=== PATIENT | female | born 2000 | race Caucasian/White ===

== ENCOUNTER 2018-12-22 21:17 | Emergency (ER) | payer OTHER ==
[~2018-12-22] VITALS: Ht 165.1 cm; Wt 56.8 kg
[2018-12-22 21:26] VITALS: TEMP 98.7
[2018-12-22] MEDS ORDERED: BOTOX 100100 U/VIAL IM (22:07)
[2018-12-22 22:10] LABS: COLLECTION METHOD CLEAN CATCH
[2018-12-22 22:14] LABS: HEMOGLOBIN 11.6 g/dl (12.0-15.0); MEAN CELL VOLUME 87 fl (80.0-95.0); MEAN CORPUSCULAR HEMOGLOBIN 29 pg (26.0-32.0); MEAN CORPUSCULAR HGB CONC 33 g/dl (33.0-37.0); PLATELET COUNT 222 K/mm3 (130-400); REDCELL DISTRIBUTION WIDTH-CV 13.5 % (11.5-14.5)
[2018-12-22 22:15] LABS: HEMATOCRIT 34.8 % (35.0-45.0)
[2018-12-22 22:25] LABS: PH 7 (5-8); SQUAMOUS EPITHELIAL 0-2 /hpf; URINE APPEARANCE Clear; URINE BACTERIA None Seen /hpf; URINE BILIRUBIN Negative (NEGATIVE); URINE BLOOD Negative (NEGATIVE); URINE COLOR Straw; URINE GLUCOSE Negative (NEGATIVE); URINE KETONE Negative (NEGATIVE); URINE LEUKOCYTE ESTERASE Negative (NEGATIVE); URINE NITRATE Negative (NEGATIVE); URINE PROTEIN(semi-quant) Negative (NEGATIVE); URINE RBC 0-2 /hpf; URINE UROBILINOGEN Negative (NEGATIVE)
[2018-12-22 22:30] LABS: ALBUMIN 4.7 gm/dL (3.5-5.0); BILIRUBIN,TOTAL 1.2 mg/dL (0.0-1.0); C-REACTIVE PROTEIN 0.7 mg/dL (0.0-0.9); CALCIUM 9.7 mg/dL (8.4-10.2); CREATININE, serum 0.66 (0.52-1.25); POTASSIUM 3.7 mmol/L (3.4-5.0); TOTAL PROTEIN 8.4 gm/dL (6.4-8.2)
[2018-12-22 22:48] LABS: EOSINOPHIL 1 % (0-4); LYMPHOCYTE 34 % (20.0-51.0); NEUTROPHILS 56 % (42.0-75.2); PLATELET ESTIMATE NORMAL (NORMAL)
[2018-12-23] MEDS ORDERED: NORCO 325 MG-51 TAB PO (01:21)
[2018-12-23 02:20] VITALS: BP 119/78; PULSE 91
== END 2018-12-23 02:20 | disposition home or self-care (01) ==
LOC: COL.ER 21:17
PROVIDERS: Emergency Medicine
DX: R10.31 Right lower quadrant pain (principal); R10.32 Left lower quadrant pain; G43.909 Migraine, unspecified, not intractable, without status migrainosus
CPT/HCPCS: J1170; J1885; J2405; J3010; J7030; Q9967

== ENCOUNTER 2018-12-29 06:01 | Day surgery (SDC) | payer OTHER ==
[~2018-12-29] VITALS: Ht 165.1 cm; Wt 56.6 kg
[~2018-12-29 06:01] MED LIST: BOTOX 100100 U/VIAL IM; NORCO 325 MG-51 TAB PO
[2018-12-29 06:29] VITALS: BP 111/75; PULSE 99; TEMP 98.1
[2018-12-29] MEDS ORDERED: KYLEENA1 EACH (06:39)
[2018-12-29] MEDS ORDERED: ACTIVELLA TABLE1 TAB PO (06:42)
--- NOTE | 2018-12-29 06:43 | NUR ---
TO RM AT 0605- CALL LIGHT IN REACH FATHER AT BEDSIDE.
[2018-12-29 08:25] VITALS: BP 141/55; PULSE 114; TEMP 98.3
--- NOTE | 2018-12-29 08:25 | NUR ---
TO BAY 3 PER CART FROM ENDOSCOPY. AMBULATED TO RECLINER WITH ASSIST AND TOLERATED WELL. RECEIVED WATER FATHER AT BEDSIDE.
[2018-12-29 08:40] VITALS: BP 106/77; PULSE 92
--- NOTE | 2018-12-29 08:40 | NUR ---
PATIENT RESTING QUIETLY DENIES ANYTHING TO EAT. DENIE PAIN OR DISCOMFORT AT THIS TIME.
[2018-12-29 08:55] VITALS: BP 105/77; PULSE 88
--- NOTE | 2018-12-29 08:55 | NUR ---
DR BREAUX INTO TALK WITH PATIENT AND HER FATHER.
--- NOTE | 2018-12-29 09:00 | NUR ---
RECEIVED DISCHARGE INSTRUCTIONS AND VERBALIZED UNDERSTANDING. DISCONTINUED IV AND INT- CATHETER INTACT PATIENT GETTING DRESSED.
--- NOTE | 2018-12-29 09:10 | NUR ---
DISCHARGED PER WC BY NURSING STAFF TO PRIVATE CAR IN CARE OF FATHER.
[2018-12-29 12:17] VITALS: BP 109/71; PULSE 96
== END 2018-12-29 09:15 | disposition home or self-care (01) ==
LOC: SDCO 06:01
DX: K59.00 Constipation, unspecified (principal); K44.9 Diaphragmatic hernia without obstruction or gangrene; K31.89 Other diseases of stomach and duodenum; Z88.0 Allergy status to penicillin
CPT/HCPCS: OP; J1200; J2250; J2405; J3010; J7030